=== PATIENT | male | born 1945 | race Caucasian/White ===

== ENCOUNTER 2016-12-13 06:28 | Inpatient (IN) | payer MEDICARE, OTHER ==
[2016-12-08 11:19] LABS: BASOPHILS 0.4 %; BASOPHILS ABSOLUTE 0.03 10/3/uL (0.0-0.16); EOSINOPHILS 3.2 %; EOSINOPHILS ABSOLUTE 0.24 10/3/uL (0.0-0.53); HEMATOCRIT 32.3 % (40.0-51.0); HEMOGLOBIN 11.1 g/dL (13.6-17.8); IMMATURE GRANULOCYTES 0.1 %; IMMATURE GRANULOCYTES ABSOLUTE 0.01 10/3/uL (0.0-0.11); LYMPHOCYTES 28.4 %; LYMPHOCYTES ABSOLUTE 2.14 10/3/uL (0.67-4.30); MEAN CORPUS HGB CONC 34.4 g/dL (32.0-36.0); MEAN CORPUSCULAR HEMOGLOB 32.3 pg (26.0-34.0); MEAN CORPUSCULAR VOLUME 93.9 fL (80-100); MEAN PLATELET VOLUME 10.3 fL (9.2-13.0); MONOCYTES ABSOLUTE 0.53 10/3/uL (0.21-1.20); NEUTROPHILS 60.9 %; NEUTROPHILS ABSOLUTE 4.58 10/3/uL (2.02-8.40); PLATELET COUNT 198 10/3/uL (150-400); RED CELL COUNT 3.44 10/6/uL (4.7-6.1); WHITE BLOOD CELLS 7.5 10/3/uL (4.5-10.5)
[2016-12-08 11:21] LABS: MANUAL DIFF NO %
[2016-12-08 11:23] LABS: PROTIME (NOT ORD) 12.8 SEC (12.0-14.5)
[2016-12-08 11:33] LABS: A/G RATIO 1.2 (0.7-1.9); ALBUMIN 3.6 G/DL (3.5-5.0); ALKALINE PHOSPHATASE 71 U/L (45-117); BUN (BLOOD UREA NITROGEN) 34 MG/DL (6-23); CALCIUM, SERUM 8.4 MG/DL (8.5-10.4); CHLORIDE, SERUM 106 MMOL/L (96-112); CO2 (CARBON DIOXIDE) 28 MMOL/L (24-34); CREATININE 2.08 MG/DL (0.70-1.30); GFR AFRICAN AMERICAN 36 ML/MIN (>=60); GFR NON AFRICAN AMERICAN 31 ML/MIN (>=60); GLOBULIN 2.9 G/DL (2.5-4.1); GLUCOSE, SERUM 103 MG/DL (60-99); POTASSIUM, SERUM 4.5 MMOL/L (3.5-5.3); SGOT(AST) 16 U/L (5-40); SGPT(ALT) 24 U/L (5-65); SODIUM, SERUM 141 MMOL/L (135-148); TOTAL BILIRUBIN 0.3 MG/DL (0-1.2); TOTAL PROTEIN 6.5 G/DL (6.0-8.5)
[2016-12-08 12:10] LABS: ASCORBIC ACID (UR NOT ORDER) NEG (NEG); BILIRUBIN, URINE NEGATIVE (NEG); KETONE, URINE NEGATIVE (NEG); LEUKOCYTE ESTERASE(NOT OR TRACE (NEG); WBC (NOT ORDERED) (RFLEX) 4 (0-5)
--- NOTE | ~2016-12-13 | OP ---
Record Of Operation [facility] [address] [place]. [address] NAME: AMIRAH ANTONY : 47 STATUS : ADM IN PAT#: [id number] AGE: 71 ADM/REG DATE : 12/13/16 MR#: [id number] REPORT SERV DATE: 12/14/16 DICTATED BY: JEROME CHOI JR. DATE: 12/13/16 REPORT STATUS : Draft TRANSCRIBED BY: MODL DATE: 12/13/16 DATE OF PROCEDURE: 12/13/2016 PREOPERATIVE DIAGNOSES: Bladder cancer, right lower lobe non-small cell lung cancer favoring invasive adenocarcinoma, history of prostate cancer, hypertension, chronic obstructive pulmonary disease. POSTOPERATIVE DIAGNOSES: Bladder cancer, right lower lobe non-small cell lung cancer favoring invasive adenocarcinoma, history of prostate cancer, hypertension, chronic obstructive pulmonary disease. NAME OF OPERATION: Bronchoscopy; right thoracoscopy with right lower lobectomy; complete mediastinal node dissection, zayra stations 7, 9, 11R; and intercostal nerve block. SURGEON: Jerome Choi M.D. RESIDENT SURGEON: Suresh Sims MD BOX TOE BUFFER: Omar Lira. ANESTHESIA: General endotracheal. FINDINGS: The patient was noted to have a large tumor contained within the superior segment of the right lower lobe. There were no other palpable abnormalities within the chest cavity. He had benign plaque within his chest wall and pleura suggestive of his previous asbestos exposure. Plaques were occupying at least a third of the pleural space within the chest cavity. There was no pericardial effusion. The lymph nodes had a benign appearance to them. Final pathology is pending, but gross inspection demonstrated margins to be free. The tumor was as described on preoperative imaging. On bronchoscopy, there was no endobronchial lesions or contraindication to resection. DESCRIPTION OF PROCEDURE: After adequate general anesthesia, the patient was intubated. A bronchoscopy was performed noting no contraindication proceeding on with surgery. Mucous secretions were evacuated. A left-sided double-lumen endotracheal tube was then placed. The patient was then positioned in the left lateral decubitus position with the right chest prepped and draped in a routine sterile fashion. A small incision was made overlying the lower intercostal space. A separate anterior trocar incision was also made. Through these two incision sites, the above findings were noted. The chest was explored. The benign pleural plaques were seen along the parietal pleura, both anteriorly, posteriorly, and laterally. The tumor was easily palpable. He had complete fissures when he had not decided to come into the operation. The anterior trocar site and the inferior trocar sites were used to start dividing the inferior pulmonary ligament. The inferior pulmonary vein was identified as well as the superior pulmonary vein. The inferior pulmonary vein was transected with a vascular stapler. The bronchus was divided with a FELICITAS stapler. The pulmonary artery and fissure were then divided with multiple firings of FELICITAS stapler with tissue reinforcements. The specimen was placed in a specimen bag and withdrawn through the Record Of Operation [address] [id number] NAME: AMIRAH ANTONY : 47 STATUS : ADM IN [facility]#: [id number] AGE: 71 ADM/REG DATE : 12/13/16 MR#: [id number] REPORT SERV DATE: 12/14/16 DICTATED BY: JEROME CHOI JR. DATE: 12/13/16 REPORT STATUS : Draft TRANSCRIBED BY: KYLIE DATE: 12/13/16 anterior trocar site. Nodes from the subcarinal, inferior pulmonary ligament, and hilar regions were removed. An intercostal nerve block was performed. A 20-[place] chest tube was placed. The lung was reinflated. Trocar sites were closed with running Vicryl sutures. The skin was closed with running monofilament suture. A Dermabond dressing was applied, and then the procedure was terminated at this point. The patient tolerated the procedure well and taken back to the recovery room in stable condition. SANJEEV/KYLIE Jerome Choi Jr., M.D. / [id number] CC: Mayte Terry Jr., MD Erick Kimmerling, MD Charles Idom, MD
[~2016-12-13 06:28] MED LIST: AMB10 PO; BIST PO; DILT-XR240 MG PO; ENDOCET1 TA1 PO; PRILO PO; STOOL SOFTEN240 MG PO; ULTRAM50 PO; VIT PO; [UNRECOGNIZED DRUG - OTHER] PO
[2016-12-14 05:24] LABS: BASOPHILS 0.3 %; BASOPHILS ABSOLUTE 0.03 10/3/uL (0.0-0.16); EOSINOPHILS 0.3 %; EOSINOPHILS ABSOLUTE 0.04 10/3/uL (0.0-0.53); HEMATOCRIT 31.3 % (40.0-51.0); HEMOGLOBIN 10.7 g/dL (13.6-17.8); IMMATURE GRANULOCYTES 0.2 %; IMMATURE GRANULOCYTES ABSOLUTE 0.02 10/3/uL (0.0-0.11); LYMPHOCYTES 15.9 %; LYMPHOCYTES ABSOLUTE 1.82 10/3/uL (0.67-4.30); MANUAL DIFF NO %; MEAN CORPUS HGB CONC 34.2 g/dL (32.0-36.0); MEAN CORPUSCULAR HEMOGLOB 32.5 pg (26.0-34.0); MEAN CORPUSCULAR VOLUME 95.1 fL (80-100); MEAN PLATELET VOLUME 10.5 fL (9.2-13.0); MONOCYTES 11.4 %; MONOCYTES ABSOLUTE 1.31 10/3/uL (0.21-1.20); NEUTROPHILS 71.9 %; NEUTROPHILS ABSOLUTE 8.26 10/3/uL (2.02-8.40); PLATELET COUNT 189 10/3/uL (150-400); RBC DISTRIBUTION WIDTH 13.3 % (12.0-16.0); RED CELL COUNT 3.29 10/6/uL (4.7-6.1); WHITE BLOOD CELLS 11.5 10/3/uL (4.5-10.5)
[2016-12-14 05:38] LABS: CALCIUM, SERUM 8.4 MG/DL (8.5-10.4); CHLORIDE, SERUM 109 MMOL/L (96-112); CO2 (CARBON DIOXIDE) 26 MMOL/L (24-34); CREATININE 2.17 MG/DL (0.70-1.30); GFR AFRICAN AMERICAN 34 ML/MIN (>=60); GFR NON AFRICAN AMERICAN 30 ML/MIN (>=60); SODIUM, SERUM 144 MMOL/L (135-148)
[2016-12-14 05:40] LABS: BUN (BLOOD UREA NITROGEN) 26 MG/DL (6-23); GLUCOSE, SERUM 131 MG/DL (60-99)
== END 2016-12-14 16:04 | disposition home or self-care (01) | DRG 164 ==
LOC: SDC/OF 06:28 → PACU 11:58 → 5NO 12:49
PROVIDERS: Thoracic Surgery (Cardiothoracic Vascular Surgery)
PROC: 0BJ08ZZ Inspection of Tracheobronchial Tree, Via Natural or Artificial Opening Endoscopic (ICD-10-PCS; 2016-12-13)
PROC: 3E0T3BZ Introduction of Anesthetic Agent into Peripheral Nerves and Plexi, Percutaneous Approach (ICD-10-PCS; 2016-12-13)
PROC: 0BTF4ZZ Resection of Right Lower Lung Lobe, Percutaneous Endoscopic Approach (ICD-10-PCS; principal; 2016-12-13 08:15)
PROC: 07T74ZZ Resection of Thorax Lymphatic, Percutaneous Endoscopic Approach (ICD-10-PCS; 2016-12-13 08:15)
DX: C34.31 Malignant neoplasm of lower lobe, right bronchus or lung (principal); Z68.1 Body mass index [BMI] 19.9 or less, adult; J44.9 Chronic obstructive pulmonary disease, unspecified; C67.9 Malignant neoplasm of bladder, unspecified; Z85.46 Personal history of malignant neoplasm of prostate; R63.4 Abnormal weight loss; I10 Essential (primary) hypertension; Z87.891 Personal history of nicotine dependence
CPT/HCPCS: 36415; 71010; 71020; 80048; 80053; 81001; 82962; 83036; 85025; 85610; 86850; 86900; 86901; 87641; 88307; 88309; 88313; 93005; 94640; A9270-GY; J0690; J2250; J2370; J2405; J2710; J2795; J3010